=== PATIENT | male | born 1945 | race Caucasian/White ===

== ENCOUNTER 2020-12-16 09:20 | Observation (INO) | payer MEDICARE, OTHER ==
[~2020-12-16] VITALS: Ht 180.3 cm; Wt 75.0 kg
[~2020-12-16 09:20] MED LIST: ASPIRIN 81M81 MG/TA2 PO; LIPITOR 10MG10 MG PO
[2020-12-16 10:07] LABS: HEMATOCRIT 42.4 % (42.0-52.0); MEAN CELL VOLUME 96 fl (80.0-100.0); MEAN CORPUSCULAR HEMOGLOBIN 32 pg (27.0-31.0); MEAN CORPUSCULAR HGB CONC 33 g/dl (33.0-37.0); MEAN PLATELET VOLUME 9.7 fl (7.4-10.4); PLATELET COUNT 263 K/mm3 (130-400); RED BLOOD COUNT 4.44 M/mm3 (4.20-5.60); REDCELL DISTRIBUTION WIDTH-CV 13.3 % (11.5-14.5)
[2020-12-16 10:19] LABS: ALANINE AMINOTRANSFERASE 16 U/L (4-49); ALBUMIN 4.3 gm/dL (3.5-5.0); ALKALINE PHOSPHATASE 61 U/L (50-136); ANION GAP 10 mmol/L (7-16); AST,SGOT 26 U/L (15-37); BILIRUBIN,TOTAL 0.9 mg/dL (0.0-1.0); BLOOD UREA NITROGEN 15 mg/dL (9-20); CALCIUM 9.4 mg/dL (8.4-10.2); CARBON DIOXIDE 27 mmol/L (22-30); CHLORIDE 100 mmol/L (98-107); CREATININE, serum 0.98 (0.66-1.25); GLUCOSE 105 mg/dL (74-106); POTASSIUM 4.3 mmol/L (3.4-5.0); SODIUM 137 mmol/L (137-145); TOTAL PROTEIN 7.9 gm/dL (6.4-8.2)
[2020-12-16 10:32] LABS: TROPONIN-I < 0.012 ng/mL (0.000-0.035)
[2020-12-16] MEDS ORDERED: INDERAL LA 60MG60 MG PO (10:38)
[2020-12-16] MEDS ORDERED: KENALOG 60 ML60 M1 TP (10:39)
[2020-12-16] MEDS ORDERED: BETAMETHASONE VA0.1% TP (10:40)
[2020-12-16] MEDS ORDERED: NIZORAL CREAM15 GM TP (10:40)
[2020-12-16 10:52] LABS: BAND 9 % (0-10); BASOPHIL 1 % (0-2); LYMPHOCYTE 14 % (20.0-51.0); NEUTROPHILS 71 % (42.0-75.2); PLATELET ESTIMATE NORMAL (NORMAL)
[2020-12-16 12:30] VITALS: BP 124/72; PULSE 53; TEMP 99.3
--- NOTE | 2020-12-16 14:08 | NUR ---
Pt arrived to room via cart with ER staff. In bed with at bedside. Pt able to move well on own. Heparin gtt infusing at 13.5mls/hr to RFA. at bedside, pt wants to eat lunch, denies needs, will continue to monitor and awake orders from Dr. Burnham.
[2020-12-16 15:03] LABS: PARTIAL THROMBOPLASTIN TIME 151.2 SECONDS (26.0-37.0)
[2020-12-16 15:25] VITALS: BP 125/62; PULSE 54; TEMP 99.1
--- NOTE | 2020-12-16 18:11 | NUR ---
Pt has done well, c/o pain to lower chest and left side, PRN tyleneol given per request and discussed PRN option for lidocaine. Heparin gtt continues, denies needs, will continue to monitor and give bedside shift report to nightshift nruse who will resume care.
--- NOTE | 2020-12-16 20:09 | NUR ---
Awake, alert, oriented x 4, able to verbalize all needs, resting tremor noted to bilateral upper extremities and head, talkative, tolerating diet w/o issue, heparin gtt infusing w/o issue, no s/s of bleeding, updated on plan of care.
[2020-12-16 20:22] VITALS: BP 119/74; PULSE 54; TEMP 98.8
[2020-12-16 22:39] VITALS: BP 116/71; PULSE 76; TEMP 97.3
[2020-12-17 04:17] VITALS: BP 124/63; PULSE 49; TEMP 96.8
[2020-12-17 07:06] LABS: BASO % 0.3 % (0.0-2.0); EOS # 0.1 (0.0-0.7); GRAN # 8.7 (1.4-6.5); GRAN % 73.9 % (42.2-75.2); HEMATOCRIT 39.6 % (42.0-52.0); HEMOGLOBIN 13.2 g/dl (13.5-18.0); LYMPH # 1.7 (1.2-3.4); LYMPH % 14.1 % (20.0-51.0); MEAN CELL VOLUME 94 fl (80.0-100.0); MEAN CORPUSCULAR HEMOGLOBIN 31 pg (27.0-31.0); MEAN CORPUSCULAR HGB CONC 33 g/dl (33.0-37.0); MEAN PLATELET VOLUME 9.7 fl (7.4-10.4); MONO # 1.2 (0.1-0.6); PLATELET COUNT 243 K/mm3 (130-400); REDCELL DISTRIBUTION WIDTH-CV 13.4 % (11.5-14.5)
[2020-12-17 07:15] LABS: CALCIUM 9.2 mg/dL (8.4-10.2); CREATININE, serum 0.99 (0.66-1.25); POTASSIUM 4.1 mmol/L (3.4-5.0)
[2020-12-17 07:30] VITALS: BP 106/59; PULSE 49; TEMP 97.5
--- NOTE | 2020-12-17 07:57 | NUR ---
ASSESMENT COMPLETED. PATIENT REPORTS PAIN AND SOB WITH MOVEMENT TO RIGHT SIDE. WILL CONTINUE TO MONITOR.
--- NOTE | 2020-12-17 08:09 | NUR ---
Pt assessment complete. Pt sitting up in bed finished with breakfast, he is A/o x4. His breathing is even and unlabored on RA. Pt denies SOB at rest, does feel the pain will take his breath away with movement. Pain currently at a 2 to L thoracic, worsens with movement or laying flat. Dull cramping to RLE. POC discussed with patient. Call light within reach.
[2020-12-17] MEDS ORDERED: ELIQUIS 5MG PO (09:37)
--- NOTE | 2020-12-17 11:00 | NUR ---
Initial visit; Patient and his thanked Die T[employer] for looking in on [place]. he has no spiritual needs at this time.
[2020-12-17 11:31] VITALS: BP 110/64; PULSE 52; TEMP 98
--- NOTE | 2020-12-17 15:10 | NUR ---
Discharge paperwork and instructions reviewed with patient. All questions answered at this time. IV to RFA dc'd. Pt wheeled out at this time.
== END 2020-12-17 15:10 | disposition home or self-care (01) ==
LOC: COL.ER 09:20 → MEDICAL 11:59
PROVIDERS: Emergency Medicine; ADMIT Family Medicine
DX: I26.99 Other pulmonary embolism without acute cor pulmonale (principal); I82.811 Embolism and thrombosis of superficial veins of right lower extremity; I82.461 Acute embolism and thrombosis of right calf muscular vein; J18.1 Lobar pneumonia, unspecified organism; I10 Essential (primary) hypertension; G51.0 Bell's palsy; J90 Pleural effusion, not elsewhere classified; D72.829 Elevated white blood cell count, unspecified; E78.5 Hyperlipidemia, unspecified; Z79.899 Other long term (current) drug therapy; Z79.01 Long term (current) use of anticoagulants; Z87.891 Personal history of nicotine dependence; Z91.010 Allergy to peanuts; Z82.49 Family history of ischemic heart disease and other diseases of the circulatory system
CPT/HCPCS: G0378; J1644; Q9967

== ENCOUNTER → 2021-02-14 | Outpatient (CLI) | payer MEDICARE, OTHER ==
[~2021-02-14] MED LIST changes: +BETAMETHASONE VA0.1% TP; +ELIQUIS 5MG PO; +INDERAL LA 60MG60 MG PO; +KENALOG 60 ML60 M1 TP; +NIZORAL CREAM15 GM TP
[2021-02-14 10:12] LABS: CALCIUM 9.1 mg/dL (8.4-10.2); CREATININE, serum 0.91 (0.66-1.25); POTASSIUM 4.1 mmol/L (3.4-5.0)
== END ==
LOC: COL.LAB 08:59
PROVIDERS: Internal Medicine Pulmonary Disease
DX: I26.99 Other pulmonary embolism without acute cor pulmonale (principal)

== ENCOUNTER → 2021-02-15 | Outpatient (CLI) | payer MEDICARE, OTHER | LOC: COL.RAD 01-17 10:00 | DX: I82.90 Acute embolism and thrombosis of unspecified vein (principal) | CPT/HCPCS: Q9967 ==

== ENCOUNTER → 2021-02-20 | Outpatient (CLI) | payer MEDICARE, OTHER | LOC: COL.VAS 11:55 | DX: I82.90 Acute embolism and thrombosis of unspecified vein (principal); I27.29 Other secondary pulmonary hypertension; I26.99 Other pulmonary embolism without acute cor pulmonale ==

== ENCOUNTER → 2022-06-17 | Outpatient (CLI) | payer MEDICARE, OTHER | LOC: COL.RAD 09:25 | DX: R31.21 Asymptomatic microscopic hematuria (principal); N28.1 Cyst of kidney, acquired; N26.1 Atrophy of kidney (terminal) ==